=== PATIENT | male | born 1950 | race Caucasian/White ===

== ENCOUNTER 2018-12-08 08:36 | Emergency (ER) | payer OTHER ==
[~2018-12-08] VITALS: Ht 165.1 cm; Wt 79.6 kg
[2018-12-08 08:39] VITALS: BP 147/80; PULSE 65; RESP 18; Ht 165.1 cm; Wt 79.6 kg
[2018-12-08] MEDS ORDERED: ACETAMINOPHEN 500 MG TAB PO STA (09:08)
--- NOTE | 2018-12-08 09:23 | ERD ---
ER Documentation Chief Complaint Chief Complaint LT LEG/FOOT TINGLING/PAIN SINCE MONDAY HPI This is a 68-year-old male patient who presents emergency room with complaint of left lower extremity numbness from the knee to the ankle, pain and calf with ambulation, pain in heel of foot with prolonged standing. 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 History significant for diabetes and high cholesterol. ROS All systems reviewed and are negative except as per history of present illness. Medications Home Meds Active Scripts Naproxen* (Naprosyn*) 500 Mg Tablet, 500 MG PO BID PRN for PAIN AND/OR INFLAMMATION, #30 TAB Prov:IVAN VALENZUELA LAUNDRY ROOM ATTENDANT 12/08/18 Allergies Allergies: Coded Allergies: No Known Allergy (Unverified , 12/08/18) FmHx Family History: diabetes Physical Exam Vitals Vital Signs Date Temp Pulse Resp B/P (MAP) Pulse Ox O2 O2 Flow FiO2 Time Delivery Rate 12/08/18 97.8 65 18 147/80 98 08:39 (102) Physical Exam Const: No acute distress Head: Atraumatic Eyes: Normal Conjunctiva, PERRL ENT: Normal External Ears, Nose and Mouth. Pharynx pink, moist, no lesions or exudate. Neck: Full range of motion. No meningismus. No lymphadenopathy Resp: Clear to auscultation bilaterally, no wheezing, no rhonchi, no rales. Cardio: Regular rate and rhythm, no murmurs Abd: Soft, non tender, non distended. Normal bowel sounds Skin: No petechiae or rashes, no bruising Ext: No cyanosis, or edema. LLE: no swelling, no bruising, cap refill <2sec, +2 pedal, tibial, pulse, +1 popliteal pulse. Point discriminiation intact, tenderness to palpation over posterior LE & calcaneous. Foot without lesions, toes without redness or swelling. Neur: Awake and alert, CNII-XII intact, clear speech, strong furniture sales consultant bl, +antalgic gait Psych: Normal Mood and Affect Results 24 hrs Laboratory Tests Test 12/08/18 09:26 Bedside Glucose 179 mg/dL Current Medications Medications Dose Sig/Judy Start Time Status Last (Trade) Ordered Route PRN Stop Time Admin Dose Reason Admin 1,000 mg ONCE STAT 12/08/18 DC 6/22/19 Acetaminophen PO 09:08 09:18 (Tylenol 12/08/18 09:13 Tab) Procedures/MDM PROCEDURES/MDM DIAGNOSTIC IMAGING: Read by radiologist. X-ray left foot IMPRESSION: 1. No acute osseous abnormality. 2. Calcaneal spur/enthesiophyte formation. US LLE IMPRESSION 1. No sonographic evidence for deep vein thrombosis LAB INTERPRETATION: B MDM: Is a 68-year-old male patient with history of diabetes that presents to emergency room with left lower extremity numbness and pain. Patient describes pain with walking, relieved with rest, and pain at bottom of heel. Patient denies ever having diagnosis of neuropathy. Lower extremity ultrasound performed to rule out DVT given symptoms of claudication, x-ray of foot was performed to rule out foreign body due to likely neuropathy of left lower extremity. X-ray does not show fracture, dislocation, bone spur to right heel. Most likely this is a overuse injury, ligament injury, start of plantar fasciitis. Patient has been instructed on well fitting shoes, decreasing prolonged standing time, use of ice and anti-inflammatories. There is no redness, and swelling to indicate infection. The ultrasound of the left lower extremity does not reveal any DVT, again most likely the pain that this patient is experienced is due to prolonged standing. And numbness may potentially be due to peripheral neuropathy. Patient has been instructed to supplement with B12 and vitamin D3, and to follow-up with primary care provider to have further evaluation of his peripheral neuropathy. Patient has also been instructed to be compliant with his antidiabetic medications, reduce carbohydrates in diet. The left lower extremity does not demonstrate swelling, redness, signs of infection, patient ambulates with steady gait, there does not seem to be a neurological or neurovascular involvement. -Medications: Tylenol Patient tolerated medication well with no adverse reactions. Patient reported improvement in pain. DISPOSITION and PLAN: RX: Naprosyn The patient has been discharge home to follow-up with community physician. Departure Diagnosis: Primary Impression: Pain of left leg Condition: Stable IVAN VALENZUELA NP Dec 08, 2018 09:23
[2018-12-08] MEDS ORDERED: NAPR-985 PO (11:08)
== END 2018-12-08 11:19 | disposition home or self-care (01) ==
LOC: FTE 08:36
DX: M79.605 Pain in left leg (principal); E11.9 Type 2 diabetes mellitus without complications
CPT/HCPCS: 82962; 93971

== ENCOUNTER 2019-01-06 08:11 | Emergency (ER) | payer OTHER ==
[~2019-01-06] VITALS: Ht 175.3 cm; Wt 78.3 kg
[~2019-01-06 08:11] MED LIST: NAPR-985 PO
[2019-01-06 08:18] VITALS: Ht 175.3 cm; Wt 78.3 kg
--- NOTE | 2019-01-06 08:56 | ERD ---
ER Documentation Chief Complaint Chief Complaint syncopal episode in bathroom at 5.45am, left rib pain. drank alc last night HPI This is a 68-year-old male who presents for evaluation of a brief syncopal episode, that occurred this morning when he got up to go to the bathroom. Patient states that it was a very brief episode, and that he quickly regained consciousness, he denies any head trauma. States had been drinking alcohol last night, he denies any chest pain or shortness of breath. He endorses pain over his left rib cage. He is able to ambulate, states it is more painful when he breathes. ROS All systems reviewed and are negative except as per history of present illness. Medications Home Meds Active Scripts Hydrocodone/Acetaminophen (Young Harris 5-325 Tablet) 1 Each Tablet, 1 TAB PO Q6H PRN for PAIN, #15 TAB Prov:NAN WANG MD 01/06/19 Reported Medications Empagliflozin (Jardiance) 25 Mg Tablet, 25 MG PO DAILY, TAB 01/06/19 Rosuvastatin Calcium* (Crestor*) 10 Mg Tablet, 10 MG PO QHS, #30 TAB 01/06/19 Nateglinide* (Nateglinide*) 120 Mg Tablet, 120 MG PO AC MEALS, TAB 01/06/19 Pioglitazone Hcl* (Actos*) 45 Mg Tablet, 45 MG PO DAILY, #30 TAB 01/06/19 Meloxicam* (Mobic*) 15 Mg Tablet, 15 MG PO DAILY, #30 TAB 01/06/19 Pantoprazole* (Protonix*) 40 Mg Tablet.dr, 40 MG PO DAILY, TAB 01/06/19 Glimepiride* (Glimepiride*) 4 Mg Tablet, 4 MG PO WITH BREAKFAST DINNE, TAB 01/06/19 Acarbose* (Precose*) 50 Mg Tablet, 100 MG PO WITH MEALS, TAB 01/06/19 Discontinued Scripts Naproxen* (Naprosyn*) 500 Mg Tablet, 500 MG PO BID PRN for PAIN AND/OR INFLAMMATION, #30 TAB Prov:IVAN VALENZUELA NP 12/08/18 Allergies Allergies: Coded Allergies: No Known Allergy (Unverified , 12/08/18) PMhx/Soc Hx Cardiac Disorders: Yes (HTN) Hx Miscellaneous Medical Probl: Yes Hx Alcohol Use: Yes Hx Substance Use: No Hx Tobacco Use: No Smoking Status: Never smoker Physical Exam Vitals Vital Signs Date Temp Pulse Resp B/P (MAP) Pulse Ox O2 O2 Flow FiO2 Time Delivery Rate 01/06/19 97.9 72 22 114/72 98 08:18 (86) Physical Exam Const: Well-developed, well-nourished Head: Atraumatic Eyes: Normal Conjunctiva ENT: Normal External Ears, Nose and Mouth. Neck: Full range of motion. No meningismus. Resp: Clear to auscultation bilaterally Cardio: Regular rate and rhythm, no murmurs Chest wall: There is tenderness over the left lateral rib area. There is no crepitus, lung sounds are clear bilaterally Abd: Soft, non tender, non distended. Normal bowel sounds Skin: No petechiae or rashes Back: No midline or flank tenderness Ext: No cyanosis, or edema Neur: Awake and alert Psych: Normal Mood and Affect Result Diagram: 01/06/19 0845 01/06/19 0845 Results 24 hrs Laboratory Tests Test 01/06/19 08:38 01/06/19 08:45 01/06/19 10:39 Bedside Glucose 262 mg/dL White Blood Count 7.3 10^3/ul Red Blood Count 4.99 10^6/ul Hemoglobin 15.3 g/dl Hematocrit 46.2 % Mean Corpuscular Volume 92.6 fl Mean Corpuscular Hemoglobin 30.7 pg Mean Corpuscular 33.1 g/dl Hemoglobin Concent Red Cell Distribution Width 13.4 % Platelet Count 176 10^3/UL Mean Platelet Volume 10.5 fl Immature Granulocytes % 0.500 % Neutrophils % 73.1 % Lymphocytes % 16.2 % Monocytes % 8.6 % Eosinophils % 1.1 % Basophils % 0.5 % Nucleated Red Blood Cells % 0.0 /100WBC Immature Granulocytes # 0.040 10^3/ul Neutrophils # 5.4 10^3/ul Lymphocytes # 1.2 10^3/ul Monocytes # 0.6 10^3/ul Eosinophils # 0.1 10^3/ul Basophils # 0.0 10^3/ul Nucleated Red Blood Cells # 0.0 10^3/ul Sodium Level 141 mmol/L Potassium Level 5.2 mmol/L Chloride Level 107 mmol/L Carbon Dioxide Level 25 mmol/L Anion Gap 9 Blood Urea Nitrogen 26 mg/dl Creatinine 0.77 mg/dl Est Glomerular Filtrat Rate mL/min > 60 mL/min Glucose Level 279 mg/dl Calcium Level 9.1 mg/dl Troponin I 0.016 ng/ml 0.019 ng/ml Current Medications Medications Dose Sig/Judy Start Time Status Last (Trade) Ordered Route PRN Stop Time Admin Dose Reason Admin 1 tab ONCE ONCE 01/06/19 DC 01/06/19 Acetaminophen PO 10:00 10:02 / 01/06/19 10:01 Hydrocodone Bitart (Young Harris ()) Procedures/MDM 68-year-old male presents for evaluation of left-sided rib pain. This is in the setting of syncopal episode which I suspect is most likely positional in nature, and may have also been related to him having drank alcohol last night, with decreased fluid intake. Given age cardiac work-up ordered, EKG showed no arrhythmia or signs of ischemia. EKG: Rate/Rhythm: Normal Sinus Rhythm QRS, ST, T-waves: No changes consistent w/ acute ischemia Impression: No evidence of ischemia or arrhythmia 12:01 PM: Patient remained he medically stable, his left rib cage pain has been controlled, he will be discharged home, with a respiratory spirometer, for his rib fracture, which was noted on x-ray, there was no evidence of pneumothorax. His troponin was negative x2, patient did not have chest pain during his evaluation, and his EKG remained normal, thus at this point I do not suspect an ischemic process, at discharge the patient was in no distress, appeared pleasant, smiling and comfortable. Departure Diagnosis: Primary Impression: Syncope Syncope type: unspecified Qualified Codes: R55 - Syncope and collapse Additional Impression: Rib fracture Encounter type: initial encounter Rib fracture type: single rib Fracture type: closed Laterality: unspecified laterality Qualified Codes: S22.39XA - Fracture of one rib, unspecified side, initial encounter for closed fracture Condition: NAN Devine MD Jan 06, 2019 08:56
[2019-01-06] MEDS ORDERED: HYDROCODONE/APAP (10/325) TAB PO ONE (10:00)
[2019-01-06] MEDS ORDERED: HYDR-4011 PO (10:43)
[2019-01-06] MEDS ORDERED: PANT40TA3 PO (11:10)
[2019-01-06] MEDS ORDERED: GLIM4TAB PO (11:10)
[2019-01-06] MEDS ORDERED: MELO15TA30 PO (11:10)
[2019-01-06] MEDS ORDERED: ACAR50TA PO (11:10)
[2019-01-06] MEDS ORDERED: NATE120T PO (11:11)
[2019-01-06] MEDS ORDERED: RSV10T PO (11:11)
[2019-01-06] MEDS ORDERED: PIOG45TA9 PO (11:11)
[2019-01-06] MEDS ORDERED: EMPA25TA PO (11:12)
[2019-01-06 12:47] VITALS: BP 111/69; PULSE 70; RESP 18
== END 2019-01-06 12:42 | disposition home or self-care (01) ==
LOC: E/R 08:11
DX: R55 Syncope and collapse (principal); I10 Essential (primary) hypertension; S22.39XA Fracture of one rib, unspecified side, initial encounter for closed fracture; W18.39XA Other fall on same level, initial encounter; Y92.002 Bathroom of unspecified non-institutional (private) residence as the place of occurrence of the external cause
CPT/HCPCS: 36415; 71100; 80048; 82962; 84484; 85025; 93005

== ENCOUNTER 2019-04-19 15:41 | Emergency (ER) | payer OTHER ==
[~2019-04-19] VITALS: Ht 172.7 cm; Wt 77.4 kg
[~2019-04-19 15:41] MED LIST changes: +ACAR50TA PO; +EMPA25TA PO; +GLIM4TAB3 PO; +HYDR-4011 PO; +MELO15TA30 PO; -NAPR-985 PO; +NATE120T PO; +PANT40TA3 PO; +PIOG45TA9 PO; +RSV10T PO
[2019-04-19 15:54] VITALS: Ht 172.7 cm; Wt 77.4 kg
[2019-04-19] MEDS ORDERED: SOD CHLORIDE 0.9% 1,000 ML IV STA (18:22)
[2019-04-19] MEDS ORDERED: HYDROCODONE/APAP (10/325) TAB PO ONE (18:30)
[2019-04-19 20:08] VITALS: BP 127/82; PULSE 64; RESP 16
== END 2019-04-19 20:09 | disposition home or self-care (01) ==
LOC: E/R 15:41
DX: M54.2 Cervicalgia (principal); E11.65 Type 2 diabetes mellitus with hyperglycemia; R20.2 Paresthesia of skin; N28.9 Disorder of kidney and ureter, unspecified; I10 Essential (primary) hypertension; Z79.84 Long term (current) use of oral hypoglycemic drugs
CPT/HCPCS: 71045; 80048; 84484; 85025; 93005; 99285; J7030